=== PATIENT | male | born 1960 | race Caucasian/White ===

== ENCOUNTER 2017-09-27 13:53 | Inpatient (IN) | payer OTHER ==
--- NOTE | 2017-09-27 14:52 | ED Physician Chart ---
ED Chief Complaint/HPI - Patient Information Date Seen:: 09/27/17 Time Seen:: 14:00 Chief Complaint:: Neck pain History of Present Illness:: onset x 3 weeks of intermittent sharp neck pain and H/As; no report of trauma, LOC, ALOC, AMS, paresthesias, weakness, dizziness, visual or gait changes, E/As , S/T, cough, C/P, SOB, Abd. Pain, A/N/V/D/C, fever, chills, or urinary s/s; pt' s last tetanus shot: < 5 years; UTD; Hx of DDD and Spinal Stenosis; pt also has a mass in his Abdomen and his PMD wanted to have that evaluated also Allergies:: Allergies Allergy/AdvReac Type Severity Reaction Status Date / Time No Known Allergies Allergy Verified 09/27/17 14:12 Vitals:: Vital Signs - 8 hr 09/27/17 14:02 Temp 98.1 F HR 64 RR 16 BP 115/54 O2 Sat % 99 Historian:: Patient, EMS Review:: Nurse's Note Reviewed, Old Chart Reviewed ED Review of Systems - Review of Systems General/Constitutional: No fever, No chills, No weight loss, No weakness, No diaphoresis, No edema, No loss of appetite Skin: No skin lesions, No rash, No bruising Head: Headache, No light-headedness Eyes: No loss of vision, No pain, No diplopia ENT: No earache, No nasal drainage, No sore throat, No tinnitus Neck: Neck pain, No swelling, No thyromegaly, No stiffness, No mass noted Cardio Vascular: No chest pain, No palpitations, No PND, No orthopnea, No edema Pulmonary: No SOB, No cough, No sputum, No wheezing GI: No nausea, No vomiting, No diarrhea, Pain, No melena, No hematochezia, No constipation, No hematemesis G/U: No dysuria, No frequency, No hematuria, No nacturia Musculoskeletal: No bone or joint pain, No back pain, No muscle pain Endocrine: No polyuria, No polydipsia Psychiatric: No prior psych history, No depression, No anxiety, No suicidal ideation, No homicidal ideation, No auditory hallucination, No visual hallucination Hematopoietic: No bruising, No lymphadenopathy Allergic/Immuno: No urticaria, No angioedema Neurological: No syncope, No focal symptoms, No weakness, No paresthesia, No headache, No seizure, No dizziness, No confusion, No vertigo ED Past Medical History - Past Medical History Obtainable: Yes Past Medical History: Asthma/COPD, PUD/GERD, Arthritis, Other (Spinal Stenosis; DDD) Family History: Diabetes Melitus, HTN Social History: Non Smoker, No Alcohol, No Drug Use, Single, Care Facility Surgical History: None Psychiatricy History: None Medication: Reviewed Family Medical History - Family Member Father Ethnicity: Non- Living Status: Hx Family Dementia: Yes ED Physical Exam - Physical Examination General/Constitutional: Awake, Well-developed, well-nourished, Alert, No distress, GCS 15, Non-toxic appearing, Ambulatory Head: Atraumatic Eyes: Lids, conjuctiva normal, PERRL, EOMI Skin: Nl inspection, No rash, No skin lesions, No ecchymosis, Well hydrated, No lymphadenopathy ENMT: External ears, nose nl, TM canals nl, Nasal exam nl, Lips, teeth, gums nl , Oropharynx nl, Tonsils nl Neck: Nontender, Full ROM w/o pain, No JVD, No nuchal rigidity, No bruit, No mass, No stridor Respiratory: Nl effort/Exclusion, Clear to Auscultation, No Wheeze/Rhonchi/Rales Cardio Vascular: RRR, No murmur, gallop, rubs, NL S1 S2, Carotid/Femoral/Distal pulses equal bilaterally GI: No tenderness/rebounding/guarding, No organomegaly, No hernia, Normal BS's, Nondistended, No McBurney tenderness Other GI comments:: + ? Abdominal Mass : No CVA tenderness Extremities: No tenderness or effusion, Full ROM, normal strength in all extremities, No edema, Normal digits & nails Neuro/Psych: Alert/oriented, DTR's symmetric, Normal sensory exam, Normal motor strength, Judgement/insight normal, Mood normal, Normal gait, No focal deficits Misc: Normal back, No paraspinal tenderness ED Labs/Radiology/EKG Results - Lab Results Comments:: U/A: + Pyuria; Na+: 132 - Radiology Results Comments:: + Ileus; Pyelonephritis; Distended Bladder; DJD; old lacunar infarcts - EKG Interpretations EKG Time:: 15:23 Rate & Rhythm: 56; SB Comments:: non-specific st-t changes ED Septic Shock - . Is Septic Shock (SBP<90, OR Lactate>4 mmol\L) present?: No - <6hrs of presentation: Vital Signs: Vital Signs - 8 hr 09/27/17 14:02 Temp 98.1 F HR 64 RR 16 BP 115/54 O2 Sat % 99 ED Reassessment (Disposition) - Reassessment Reassessment Condition:: Improved - Diagnosis Diagnosis:: Dx: Hyponatremia; UTI; Pyelonephritis; Ileus; Neck Pain; DJD; Dehydration - Aftercare/Follow up Instructions Aftercare/Follow-Up Instructions:: Counseled pt regarding lab results/diagnosis & need follow up, Counseled pt & family regarding lab results/diagnosis & need follow up - Patient Disposition Discharge/Transfer:: Acute Care w/in this hosp Accepting Physician:: Dr. Carias Time Called:: 1600 Time Responded:: 16:00 Admitted to:: Med/Surg Spoke to:: Dr. Carias Admitting Medical Physician:: Dr. Carias Condition at Disposition:: Stable, Improved
[2017-09-27] MEDS ORDERED: Sodium Chloride 0.9% 1,000 ML IV ONE (15:14)
[2017-09-27 15:34] LABS: % BASOPHILS 0.2 % (0.0-2.0); % EOSINOPHILS 6.8 % (0.0-5.0); % LYMPHOCYTES 21.4 % (20.0-50.0); % MONOCYTES 6.5 % (2.0-10.0); % NEUTROPHILS 65.1 % (40.0-80.0); EOSINOPHILE ABSOLUTE 0.5 Th/cmm (0.1-0.4); HEMATOCRIT 37.3 % (41.0-60); HEMOGLOBIN 12.6 gm/dL (12-16); LYMPHOCYTE ABSOLUTE 1.7 Th/cmm (1.5-3.0); MEAN CELL VOLUME 84.5 fl (80-99); MEAN CORPUSCULAR HEMOGLOBIN 28.5 pg (26.0-30.0); MEAN CORPUSCULAR HGB CONC 33.7 pg (28.0-36.0); MEAN PLATELET VOLUME 9.9 fl; MONOCYTE ABSOLUTE 0.5 Th/cmm (0.3-1.0); NEUTROPHILE ABSOLUTE 5.1 Th/cmm (1.8-8.0); PLATELET COUNT 298 Th/cmm (150-400); RED BLOOD COUNT 4.42 Mil/cmm (4.30-5.70); WHITE BLOOD COUNT 7.8 Th/cmm (4.8-10.8)
[2017-09-27] MEDS ORDERED: Morphine Sulfate 2 mg/mL 1mL Syr IV STA (15:38)
[2017-09-27 15:48] LABS: INR 0.91 (0.5-1.4); PROTHROMBIN TIME (TEST) 9.5 SECONDS (9.5-11.5)
[2017-09-27] MEDS ORDERED: Morphine Sulfate 2 mg/mL 1mL Syr ONE (15:51)
[2017-09-27 15:53] LABS: ALBUMIN 4.1 gm/dL (4.2-5.5); ALKALINE PHOSPHATASE 63 U/L (34-104); ANION GAP 11.4 (7.0-16.0); BILIRUBIN,TOTAL 0.4 mg/dL (0.3-1.0); BUN - UREA NITROGEN 7 mg/dL (7-25); CALCIUM SERUM 9.4 mg/dL (8.6-10.3); CARBON DIOXIDE 24.2 mEq/L (21.0-31.0); CHLORIDE 100 mEq/L (98-107); CHOLESTEROL 102 mg/dL (<200); CREATININE - SERUM 0.6 mg/dL (0.7-1.3); CREATININE KINASE 82 U/L (30-223); GFR AFRICAN-AMERICAN > 60.0 ml/min (>90); GFR NON AFRICAN-AMERICAN > 60.0 ml/min; GLUCOSE 87 mg/dL (70-105); HDL -HIGH DENSITY LIPOPROTEIN 42 mg/dL (23-92); POTASSIUM SERUM 3.6 mEq/L (3.5-5.1); SGOT 16 U/L (13-39); SGPT/ALT 12 U/L (7-52); SODIUM SERUM 132 mEq/L (136-145); TOTAL PROTEIN,SERUM 6.2 gm/dL (6.0-8.3); TRIGLYCERIDES 69 mg/dL (<150)
[2017-09-27 15:54] LABS: AMYLASE SERUM 57 U/L (29-103); LIPASE 6 U/L (11-82)
[2017-09-27 16:07] LABS: URINE MICROSCOPIC INDICATED? YES; URINE SOURCE CLEAN C
[2017-09-27 16:09] LABS: URINE BILIRUBIN NEGATIVE (NEGATIVE); URINE BLOOD NEGATIVE (NEGATIVE); URINE GLUCOSE (UA) NEGATIVE (NEGATIVE); URINE KETONE NEGATIVE (NEGATIVE); URINE LEUKOCYTE ESTERASE TRACE (NEGATIVE); URINE NITRATE NEGATIVE (NEGATIVE); URINE PROTEIN NEGATIVE (NEGATIVE); URINE UROBILINOGEN 0.2 E.U./dL (0.2 - 1.0)
[2017-09-27 16:10] LABS: URINE CLARITY CLEAR (CLEAR); URINE COLOR YELLOW
[2017-09-27 16:11] LABS: URINE BACTERIA NONE SEEN /hpf (NONE SEEN); URINE EPITHELIAL CELLS NONE SEEN /lpf (FEW); URINE RBC NONE SEEN /hpf (0-5)
[2017-09-27] MEDS ORDERED: cefTRIAXone 1 GM in Sodium Chloride 0.9% 50 ML IV ONE (18:06)
[2017-09-27] MEDS ORDERED: Fleet Enema 135 mL RC PRN (18:44)
[2017-09-27] MEDS ORDERED: Acetaminophen 500 MG TAB PO PRN (18:44)
[2017-09-27] MEDS ORDERED: D5-0.9%NS 1,000 ML IV SCH (18:49)
[2017-09-27] MEDS ORDERED: Potassium Chloride 20 mEq ER Tab PO PRN (18:50)
[2017-09-27] MEDS ORDERED: Mag Sulfate 2gm/50mL Premix 2 GM/50 ML BAG IV PRN (18:50)
[2017-09-27] MEDS ORDERED: Potassium Chloride 40 MEQ, Lidocaine 1% 20mL Vial 25 MG in Sodium Chloride 0.9% 250 ML IV PRN (18:50)
[2017-09-27] MEDS: Albuterol/Ipratropium Neb 3 ML AERS HHN SCH ×2 (21:33→23:53)
[2017-09-27 21:57] LABS: A1C % 5.8 % (4.0-6.0)
[2017-09-28] MEDS: D5-0.9%NS 1,000 ML IV SCH ×2 (00:01→16:01)
[2017-09-28 01:20] VITALS: BP 100/58
[2017-09-28] MEDS: Albuterol/Ipratropium Neb 3 ML AERS HHN SCH ×6 (03:15→23:10)
[2017-09-28] MEDS: Morphine Sulfate 2 mg/mL 1mL Syr IVP PRN ×2 (04:58→22:48)
[2017-09-28 05:30] LABS: ANION GAP 6.1 (7.0-16.0); BUN - UREA NITROGEN 6 mg/dL (7-25); CALCIUM SERUM 8.5 mg/dL (8.6-10.3); CARBON DIOXIDE 22.7 mEq/L (21.0-31.0); CHLORIDE 106 mEq/L (98-107); CREATININE - SERUM 0.5 mg/dL (0.7-1.3); GFR AFRICAN-AMERICAN > 60.0 ml/min (>90); GFR NON AFRICAN-AMERICAN > 60.0 ml/min; GLUCOSE 115 mg/dL (70-105); POTASSIUM SERUM 3.8 mEq/L (3.5-5.1); SODIUM SERUM 131 mEq/L (136-145)
--- NOTE | 2017-09-28 08:31 | Diagnostic Imaging Report ---
Portable chest x-ray HISTORY: Shortness of breath Heart size is normal. No focal pulmonary processes. Mildly displaced fractures involving the lateral aspects of the left sixth and seventh ribs. IMPRESSION: 1. Mildly displaced fractures involving the lateral aspects of the left sixth and seventh ribs. 2. No acute pulmonary processes
--- NOTE | 2017-09-28 08:33 | Diagnostic Imaging Report ---
CT scan of the brain without contrast History: Trauma Total DLP equals 549 CTDI equals 31.2 Axial sections were obtained from the base of the skull to the vertex. There is a normal ventricular system size. No focal parenchymal lesions are seen. No evidence of any mass effect or shift of midline structures. No extra-axial masses or abnormal fluid collections. Impression: Negative examination.
--- NOTE | 2017-09-28 08:36 | Diagnostic Imaging Report ---
Exam: CT examination cervical spine HISTORY: Trauma Total DLP equals 356 CTDI equals 17.6 Findings. Multiple contiguous thin section of the cervical spine were obtained axial plane with coronal and sagittal reconstruction technique. No prior studies available for comparison. The study demonstrates degenerative changes of the lower cervical spine with narrowing of the intravertebral disc spaces at C5-C6 ,C6- C7 intervertebral disc spaces with extensive osteophytic spurring and bridging appreciated. There is no evidence of spinal stenosis. The odontoid process is intact. No prevertebral soft tissue swelling is noted. Facet joint arthropathy and lower cervical spine appreciated. There is no evidence of spondylolysis is present listhesis. Vascular calcifications appreciated. IMPRESSION: Degenerative changes of cervical spine.
--- NOTE | 2017-09-28 08:42 | Diagnostic Imaging Report ---
Exam: CT examination abdomen pelvis. HISTORY: Abdominal mass. Total DLP equals 409 CTDI equals 8.9 Findings: Multiple contiguous thin section of the abdomen pelvis obtained from lower thorax to the pubic symphysis without administration of oral or intravenous contrast material. The study therefore is limited. The study demonstrates normal aeration of lung parenchyma the bases. The liver and spleen intact. The gallbladder is normal. The pancreas poorly seen. The adrenal glands are normal. The kidneys demonstrate no evidence of obstructive uropathy or nephrolithiasis. There is evidence of perinephric inflammatory changes edema mesentery throughout the descending. There is extensive fusion lower lumbar sacral spine. The distention of the small bowel might be related to mild ileus. Aorta and iliac vessels are calcified. Large amount of fecal content is noted. There is no evidence of diverticular disease of diverticulitis. The urinary bladder is distended. Bony structures demonstrate no evidence for lytic or blastic changes. IMPRESSION: Retroperitoneal edema with perinephric inflammatory changes, question of pyelonephritis Large of fecal content Distended urinary bladder. Fusion lower lumbar spine. Question of mild ileus. Clinical correlation recommended.
[2017-09-28] MEDS: Atorvastatin Calcium 10 MG TAB PO SCH (08:47)
[2017-09-28] MEDS: Aspirin 81mg Chewable Tab PO SCH (08:47)
[2017-09-28] MEDS ORDERED: IOHEXOL 300mgI/mL 100 ML VIAL IVP ONE (10:24)
[2017-09-28] MEDS ORDERED: IOHEXOL 300mgI/mL 100 ML VIAL PO ONE (10:24)
--- NOTE | 2017-09-28 10:53 | History & Physical ---
ADMIT DATE: 09/27/2017 CHIEF COMPLAINT: Intractable neck pain, low back pain, nausea, vomiting, and stomach pain. HISTORY OF PRESENT ILLNESS: The patient is a 57-year-old male who has been at [facility] for an extended amount of time now. Approximately, 7 months ago, he started experiencing severe muscle weakness. He presented to the hospital where he was found to have severe lumbar spine degenerative joint disease. He went to emergent surgery. Since then, he has been wheelchair bound, but his range of motion has been improving slowly. At this facility he started experiencing GI upset along with abdominal pain. CT scan was done, which showed the following impression: Multiple hypodense pancreatic lesions measuring up to 19 mm in diameter, which may reflect pancreatic pseudocyst and/or cystic pancreatic neoplasms and postsurgical lumbar spine. He was sent to the hospital for further workup and treatment. CT done here without contrast did not confirm that because it was not an ideal image, so I discussed the care plan with the radiologist and we agreed to get a CT scan with IV contrast. PAST MEDICAL HISTORY: Significant for lumbar spine DJD, C-spine DJD, opiate dependence, hypertension, chronic pain syndrome. SOCIAL HISTORY: Denies any alcohol, tobacco or drug abuse. FAMILY HISTORY: Noncontributory. ALLERGIES: No known drug allergies. SURGICAL HISTORY: Positive for lumbar spine surgery in January or February of 2017. MEDICATIONS: All medication reviewed and reconciled. REVIEW OF SYSTEMS: GENERAL: Positive recent fatigue, decreased appetite, but no fevers or chills. HEENT: Denies any head trauma, change in vision, taste, hearing, or smell. Oral: Denies any pain or discharge. NECK: No recent tracheal deviation, but he does history of chronic neck pain. CARDIOVASCULAR: Denies any chest pain or palpitations. SKIN: No recent rashes. PSYCHIATRIC: No history of psychosis, hallucination. NEUROLOGIC: Positive for lower extremity numbness and weakness and decreased muscle strength. MUSCULOSKELETAL: Positive for chronic low back pain and neck pain. SKIN: No recent rashes. GENITOURINARY: Denies any dysuria, but he has been experiencing urinary frequency. RESPIRATORY: No history of COPD or asthma. PHYSICAL EXAMINATION: VITAL SIGNS: Temperature 98.2 degrees, heart rate is 84, respirations 18, blood pressure 117/66. Currently, he states that the pain is 5/10 and he is very upset about not receiving more pain medication. GENERAL: No acute distress, awake, alert. HEENT: No acute issues. NECK: Trachea is midline. ABDOMEN: Slightly tender. Bowel sounds are present. EXTREMITIES: No edema. SKIN: No rashes. PSYCHIATRIC: He has labile mood, but no psychosis or hallucinations. RESPIRATORY: Decreased breath sounds bilaterally, no rales. MUSCULOSKELETAL: He has decreased muscle strength in lower extremities. He is wheelchair bound, but he has been experiencing some improvement in his muscle strength in the last couple of months. LABORATORY DATA: UA shows leukocyte esterase is positive, WBCs are 2-5, white count is 7.8, hemoglobin is 12.6, platelet count is 298,000. INR is 0.91. Sodium 132, potassium 3.6, chloride 100, bicarbonate 24.2, BUN 7, creatinine 0.6, troponin less than 0.01. Lipase is 6. Amylase is 57. CT of the abdomen and pelvis does not show any acute abnormalities here, but the one done on 09/21/2017 shows multiple hypodense pancreatic lesions measuring up to 19 mm in diameter, which may reflect pancreatic pseudocyst and/or cystic pancreatic neoplasms. ASSESSMENT AND PLAN: 1. Gastrointestinal upset. 2. Intractable abdominal pain. 3. Pancreatic pseudocysts. 4. Chronic pain syndrome with opiate dependence. 5. Hyponatremia. 6. C-spine degenerative joint disease. 7. Left 6th and 7th rib fractures. 8. Lumbar spine degenerative joint disease. 9. L-spine paraplegia. PLAN: CT of the abdomen has been ordered with contrast. GI has seen the patient, they will be taking him for EGD today. Continue pain control. I have discussed opiate dependence with the patient and the detrimental effects. He is very upset. He wants something stronger for the pain. Follow up on the rest of the labs. Continue IV fluids. [facility]# [id number]
--- NOTE | 2017-09-28 15:57 | Operative Report ---
DATE OF SURGERY: 09/28/2017 PROCEDURE: Esophagogastroduodenoscopy with biopsy. INDICATION FOR PROCEDURE: Nausea and vomiting, abdominal pain. CONSENT: Informed consent was obtained from the patient after outlining benefits and risks including infection, bleeding, perforation, . ANESTHESIA USED: Propofol. PREOPERATIVE DIAGNOSES: 1. Abdominal pain. 2. Nausea and vomiting. POSTOPERATIVE DIAGNOSES: 1. Gastritis. 2. Hiatal hernia. 3. Small Miriam-Montelongo tear, complicating the procedure from retching. DESCRIPTION OF PROCEDURE: The patient was placed on his back. Head was tilted to the side and flexed forward. Upper Olympus endoscope was introduced in the mouth and advanced to the esophagus, which was intubated under direct visualization. Esophageal mucosa was examined on the way down to essentially normal. GE junction was identified at 40 cm. There was an incomplete ring seen there. Scope was advanced to the stomach where the gastric mucosa was examined and showed gastritis. There was erythema involving the body and antrum. Scope was retroflexed to examine the cardia and fundus, showed a small hiatal hernia. Scope was then straightened and advanced through the pylorus to the duodenum where the bulb and second part were examined and they were both normal. There were some areas of irritation, but nothing significant. Scope was withdrawn to the stomach. Biopsies were taken from the antrum and body for histopathology and from the antrum for CLOTest. Then, scope was advanced to the duodenum. Biopsies were taken from the second portion of the duodenum and from the bulb to rule out celiac disease. Scope was then withdrawn. There was some bleeding seen at the GE junction, which is most likely from the retching associated with the procedure. We watched it for a while and it looked much better. There was no active bleeding, no reaccumulation of blood. The patient tolerated the procedure well. There were no immediate postoperative complications. RECOMMENDATIONS: 1. Follow up biopsy results. 2. Treat H. pylori if positive. 3. Modify that if you have celiac disease. 4. More than likely, the patient will need to have an endoscopic ultrasound as an outpatient. 5. PPI. Thank you, Dr. Carias, for allowing me to participate in the care of the patient. If you have any further questions, please let me know. JOB# [id number]
[2017-09-28] MEDS ORDERED: cefTRIAXone 1 GM in Sodium Chloride 0.9% 50 ML IV SCH (18:00)
--- NOTE | 2017-09-28 23:12 | Consultation ---
DATE OF CONSULTATION: 09/28/2017 REASON FOR CONSULTATION: Nausea, vomiting, abdominal pain. HISTORY OF PRESENT ILLNESS: This consult was obtained through the request of Dr. Dilma Carias for this 57-year-old with history of degenerative joint disease, hypertension, chronic pain, narcotic dependence, presenting to the hospital with neck pain, back pain, nausea, vomiting and abdominal pain. Apparently, the patient went to [facility], had a CAT scan, which showed some cystic lesions or some lesion in the pancreas, was sent home. Symptoms persisted, so he was brought here. Apparently, the patient also has some muscle weakness and he had some degenerative joint disease, at that time, he is wheelchair bound and this time when I saw the patient is kind of sleepy, lethargic. PAST MEDICAL HISTORY: Degenerative joint disease, hypertension, narcotic dependence, chronic pain syndrome. PAST SURGICAL HISTORY: Lumbar and back surgery. SOCIAL HISTORY: By report, nonsmoker, nonalcoholic or IV drug abuser. FAMILY HISTORY: Noncontributory. ALLERGIES: No known drug allergy. REVIEW OF SYSTEMS: Unobtainable. PHYSICAL EXAMINATION: GENERAL: The patient is arousable, responsive, in no acute distress. VITAL SIGNS: Blood pressure was 131/61, heart rate 82, respiratory rate 18, temperature is 98.6. HEAD AND NECK: Pupils reactive to light. Extraocular muscles could not be tested. Oral cavity, no lesion. NECK: Supple. CHEST: Good air entry. LUNGS: Clear to auscultation. CARDIOVASCULAR SYSTEM: Regular rate and rhythm. No murmur or gallop. ABDOMEN: Soft, positive bowel sounds. Positive epigastric tenderness. EXTREMITIES: Lower extremities, no edema. CENTRAL NERVOUS SYSTEM: Unable to evaluate. LABS: CBC was unremarkable. Chemistry showed normal liver enzymes. CAT scan as above, but also had a CAT scan here, which showed retroperitoneal edema, perinephric inflammatory changes, possible pyelonephritis, large amount of stools, then he had CT of the chest, which showed degenerative diseases. IMPRESSION: A 57-year-old with nausea, vomiting, epigastric pain. ASSESSMENT AND PLAN: Nausea, vomiting, epigastric pain, rule out peptic ulcer disease versus upper gastrointestinal malignancy versus erosive esophagitis versus side effect of narcotics. RECOMMENDATIONS: 1. PPI. 2. Endoscopy. 3. Further recommendations to follow. 4. Possible pancreatic lesion. The patient should have an endoscopic ultrasound as an outpatient. Other medical problems such as hypertension, chronic pain, narcotic dependence, etc., as per Dr. Carias. Thank you, Dr. Carias, for allowing me to participate in the care of the patient. If you have any further questions, please let me know. JOB# [id number]
[2017-09-29] MEDS: Albuterol/Ipratropium Neb 3 ML AERS HHN SCH ×3 (03:44→11:36)
[2017-09-29] MEDS: Morphine Sulfate 2 mg/mL 1mL Syr IVP PRN (06:30)
[2017-09-29 06:38] LABS: ANION GAP 9.7 (7.0-16.0); BUN - UREA NITROGEN 4 mg/dL (7-25); CALCIUM SERUM 8.9 mg/dL (8.6-10.3); CARBON DIOXIDE 22.1 mEq/L (21.0-31.0); CHLORIDE 104 mEq/L (98-107); CREATININE - SERUM 0.4 mg/dL (0.7-1.3); GFR AFRICAN-AMERICAN > 60.0 ml/min (>90); GFR NON AFRICAN-AMERICAN > 60.0 ml/min; GLUCOSE 121 mg/dL (70-105); POTASSIUM SERUM 3.8 mEq/L (3.5-5.1); SODIUM SERUM 132 mEq/L (136-145)
[2017-09-29] MEDS: D5-0.9%NS 1,000 ML IV SCH (06:41)
--- NOTE | 2017-09-29 08:06 | Diagnostic Imaging Report ---
CT scan abdomen with intravenous contrast HISTORY: Pancreatic mass Total DLP equals 545 CTDI equals 17.0 Following administration of intravenous contrast, axial sections were obtained from the xiphoid process down to a level below the iliac crests. The exam is compared with the prior noncontrast study performed September 27, 2017. The liver exhibits a homogeneous parenchyma. No focal lesions. The spleen appears normal. The exam of the pancreas demonstrates multiple well-circumscribed hypodense foci with generalized pancreatic parenchymal loss. Findings may be associated with multiple cysts. The largest measures approximately 2.0 cm and is situated in the periphery of the pancreatic tail. Exact etiology and clinical significance is uncertain. Correlation clinically and with laboratory data needed. A follow-up examination in 3 months recommended for monitoring. Compared with the earlier exam, there is again noted extensive bilateral abnormal perinephric changes with severe stranding. The findings may be associated with inflammatory etiology. Clinical correlation is needed. No hydronephrosis. IMPRESSION: 1. Multiple nodular hypodensities that may be associated with cystic changes involving the pancreas. Exact significance and etiology uncertain. Clinical correlation and correlation with laboratory data needed. A follow-up examination in 3 months recommended for monitoring. 2. Extensive bilateral perinephric stranding. Findings may be associated with an inflammatory etiology. Clinical correlation is needed.
[2017-09-29] MEDS: Aspirin 81mg Chewable Tab PO SCH (08:13)
[2017-09-29] MEDS: Atorvastatin Calcium 10 MG TAB PO SCH (08:13)
--- NOTE | 2017-09-29 15:40 | Discharge Summary ---
DATE OF DISCHARGE: 09/29/2017 DATE OF DISCHARGE AND DISPOSITION: Back to residential facility, 09/29/2017. CAUSE OF ADMISSION: The patient is a 57-year-old male who was sent from [facility]. He has been living there for an extended amount of time of approximately 7 months where he started experiencing severe muscle weakness. He presented to the hospital where he was found to have severe lumbar spine DJD. He went for urgent surgery. Since then, he has been wheelchair bound, but his range of motion has been improving slowly. At this facility, he started experiencing GI upset along with abdominal pain. CT scan was done, which showed the following impression; multiple hypodense pancreatic lesions measuring up to 19 mm in diameter, which may reflect pancreatic pseudocyst and/or cystic pancreatic neoplasms and poor surgical lumbar spine. He was sent to the hospital for further workup and treatment. CT done here without contrast did not confirm that because it was not ideal image, so I discussed care plan with the radiologist and we got a CT scan with IV contrast. ADMITTING DIAGNOSES: 1. Gastrointestinal upset. 2. Intractable abdominal pain. 3. Pancreatic pseudocyst. 4. Chronic pain syndrome with opiate dependence. 5. Hyponatremia. 6. Cervical spine degenerative joint disease. 7. Left sixth and seventh rib fractures. 8. Lumbar spine degenerative joint disease. 9. Lumbar spine paraplegia. 10. Gastritis with the hiatal hernia and small Miriam-Montelongo tear. DISCHARGE DIAGNOSES: 1. Gastrointestinal upset. 2. Intractable abdominal pain. 3. Pancreatic pseudocyst. 4. Chronic pain syndrome with opiate dependence. 5. Hyponatremia. 6. Cervical spine degenerative joint disease. 7. Left sixth and seventh rib fractures. 8. Lumbar spine degenerative joint disease. 9. Lumbar spine paraplegia. 10. Gastritis with the hiatal hernia and small Miriam-Montelongo tear. 11. Hyponatremia. SUMMARY OF HOSPITAL COURSE: The patient was seen by GI, Dr. Hill. EGD was done. He was found to have the above-mentioned findings including gastritis and small hiatal hernia and small Miriam-Montelongo. We started him on Protonix 40 mg b.i.d. He has cleared him for discharge. Also, the repeat CT scan was done, which showed small cysts around the pancreas. The patient is asymptomatic now. He denies any nausea, vomiting, abdominal pain. In fact, he has been wanting to leave [facility]. He wanted to leave yesterday on 09/28/2017. He stated that he does not care about the CT because he was feeling better. I explained to him that we must rule out any severe etiology. He decided to stay. Today, he is feeling much better. The CT scan does not show anything acute. The small cyst can be followed up in 6 months with the ultrasound. Amylase and lipase are negative. His diet has been advanced. He has been requiring excessive pain control. He has chronic neck and low back pain. PHYSICAL EXAMINATION: VITAL SIGNS: Temperature is 98.9 degrees, heart rate is 70, respirations 19, blood pressure 130/66. Currently, the pain is about 2/10, which is chronic. GENERAL: No acute distress, awake, alert. HEENT: No acute issues. NECK: Trachea is midline. CARDIOVASCULAR: Regular rate and rhythm. SKIN: No rashes. LABORATORY DATA AND DIAGNOSTIC DATA: The patient's abdominal CT showed multiple nodular hyperdensity that may be associated with cystic changes involving the pancreas. Also, the patient's head CT was done, which did not show any acute abnormalities. C-spine CT was done, which did not show any acute abnormalities. The patient's white count is 7.8, hemoglobin is 12.6, and platelet count 298,000. INR 0.91. Sodium 131, potassium 3.8, chloride 106, bicarbonate 22.7, BUN 6, and creatinine 0.5. Troponin less than 0.01. Amylase is 57, lipase is 6, glucose 121, calcium is 8.9. DISPOSITION: He is being discharged back to residential facility. He has been given specific instructions about his discharge. I have also let him know that he will need ultrasound of the abdomen in about 6 months regarding the pancreatic pseudocysts. CONSULTS: Dr. Hill. PROCEDURES: EGD. JOB# [id number]
--- NOTE | 2017-10-01 14:17 | Pathology Report ---
[id number] Collection Date: 09/28/2017 Surgeon: Dr. Evelio Hill Specimen Description: 1. Antrum biopsy 2. Duodenum biopsy Gross Description: Part I: Received in formalin are two ramirez soft tissue fragments ranging from 0.1 to 0.2 cm in greatest dimension. Totally submitted in one cassette labeled A. Gross Description: Part II: Received in formalin are four ramirez soft tissue fragments ranging from 0.1 to 0.2 cm in greatest dimension. Totally submitted in one cassette labeled B. Microscopic Description: Part I: The histologic sections show gastric mucosa with chronic inflammation present consisting of lymphocytes and plasma cells. The Giemsa stain shows no evidence for Helicobacter pylori. Diagnosis: Part I: 1. Chronic gastritis, antrum biopsy. 2. The Giemsa stain is negative for Helicobacter pylori. Microscopic Description: Part II: The histologic sections show duodenal mucosa with intact intestinal villi, showing no evidence for villous abnormality. Diagnosis: Part II: No evidence for celiac disease/sprue, duodenal biopsy. [facility]# [id number]
== END 2017-09-29 12:45 | disposition home or self-care (01) | DRG 241 ==
LOC: ER 13:53 → MSI 18:34
PROVIDERS: ADMIT General Practice; ATTEND General Practice
PROC: 0DB98ZX Excision of Duodenum, Via Natural or Artificial Opening Endoscopic, Diagnostic (ICD-10-PCS; principal; 2017-09-28)
PROC: 0DB68ZX Excision of Stomach, Via Natural or Artificial Opening Endoscopic, Diagnostic (ICD-10-PCS; 2017-09-28)
DX: K29.70 Gastritis, unspecified, without bleeding (principal); K22.6 Gastro-esophageal laceration-hemorrhage syndrome; G82.20 Paraplegia, unspecified; K86.3 Pseudocyst of pancreas; E87.1 Hypo-osmolality and hyponatremia; F11.20 Opioid dependence, uncomplicated; K56.7 Ileus, unspecified; N12 Tubulo-interstitial nephritis, not specified as acute or chronic; K30 Functional dyspepsia; J44.9 Chronic obstructive pulmonary disease, unspecified; K21.9 Gastro-esophageal reflux disease without esophagitis; S22.49XA Multiple fractures of ribs, unspecified side, initial encounter for closed fracture; M48.00 Spinal stenosis, site unspecified; M47.896 Other spondylosis, lumbar region; N39.0 Urinary tract infection, site not specified; E86.0 Dehydration; M47.816 Spondylosis without myelopathy or radiculopathy, lumbar region; I10 Essential (primary) hypertension; G89.4 Chronic pain syndrome; M47.812 Spondylosis without myelopathy or radiculopathy, cervical region; K44.9 Diaphragmatic hernia without obstruction or gangrene; Z83.3 Family history of diabetes mellitus; Z82.49 Family history of ischemic heart disease and other diseases of the circulatory system; Z99.3 Dependence on wheelchair
CPT/HCPCS: 36415-UA; 70450-TC; 71045-TC; 72125-TC; 74160-TC; 80048-TC; 80053-TC; 80061-TC; 81001-TC; 82150-TC; 82550-TC; 82948-90; 83036-90; 83690-TC; 83880-TC; 84484-TC; 85025-TC; 85610-TC; 85730-TC; 87086-90; 87338-TC; 88305-90; 88312-90; 93005; 94760; C9113; J0696; J1644; J2001; J2060; J2270; J2405; J3480; J7030; J7042; Q9967; Z7610